=== PATIENT | male | born 1960 | race Caucasian/White ===

== ENCOUNTER 2016-08-18 13:01 | Emergency (ER) | payer MEDICAID ==
[~2016-08-18] VITALS: Ht 177.8 cm; Wt 68.1 kg
[2016-08-18] MEDS ORDERED: BISACODYL 5 MG EC TABLET PO ONE (14:15)
[2016-08-18 14:54] VITALS: BP 109/67
== END 2016-08-18 15:23 | disposition home or self-care (01) ==
LOC: EMS 13:04
DX: K59.00 Constipation, unspecified (principal)
CPT/HCPCS: 99282

== ENCOUNTER 2016-08-22 08:14 | Emergency (ER) | payer MEDICAID ==
[~2016-08-22] VITALS: Ht 177.8 cm; Wt 68.2 kg
[2016-08-22 08:34] VITALS: BP 109/67
== END 2016-08-22 08:49 | disposition home or self-care (01) ==
LOC: EMS 08:18
DX: K59.00 Constipation, unspecified (principal); Z88.0 Allergy status to penicillin
CPT/HCPCS: 99281

== ENCOUNTER 2016-11-11 16:04 | Emergency (ER) | payer MEDICAID ==
[~2016-11-11] VITALS: Ht 182.9 cm; Wt 68.2 kg
[2016-11-11 17:19] VITALS: BP 120/79
[2016-11-11] MEDS ORDERED: DIPHENOXYLATE/ATROP 2.5-0.025 MG TABLET PO ONE (17:30)
[2016-11-11] MEDS ORDERED: ONDANSETRON HCL 4 MG TABLET PO ONE (17:30)
[2016-11-11 17:35] LABS: APPEARANCE,URINE CLEAR (CLEAR); GLUCOSE, URINE (UA) NEGATIVE (NEGATIVE); KETONES,URINE 15 mg/dL (NEGATIVE); LEUKOCYTE ESTERASE ,URINE NEGATIVE (NEGATIVE); OCCULT BLOOD,URINE NEGATIVE (NEGATIVE); PH,URINE 5.5 (5.0-8.0); PROTEIN,URINE NEGATIVE (NEGATIVE)
[2016-11-11 17:39] LABS: ADD UA MICROSCOPIC NO
== END 2016-11-11 18:05 | disposition home or self-care (01) ==
LOC: EMS 16:06
DX: R19.7 Diarrhea, unspecified (principal); Z76.0 Encounter for issue of repeat prescription; Z88.0 Allergy status to penicillin
CPT/HCPCS: 81003; 99283; Q0162

== ENCOUNTER 2017-05-19 18:07 | Emergency (ER) | payer MEDICAID ==
[~2017-05-19] VITALS: Ht 182.9 cm; Wt 72.7 kg
[2017-05-19] MEDS ORDERED: DiphenhydrAMINE HCL 25 MG CAPSULE PO ONE (21:30)
[2017-05-19 21:34] VITALS: BP 132/68
[2017-05-19] MEDS ORDERED: PERMETHRIN 5% 60 GM CREAM TP ONE (22:30)
== END 2017-05-19 22:51 | disposition home or self-care (01) ==
LOC: EMS 18:11
DX: B86 Scabies (principal); Z88.0 Allergy status to penicillin
CPT/HCPCS: 99283

== ENCOUNTER 2017-05-22 16:05 | Emergency (ER) | payer MEDICAID ==
[~2017-05-22] VITALS: Ht 182.9 cm; Wt 72.7 kg
[2017-05-22 17:43] VITALS: BP 132/79
== END 2017-05-22 17:43 | disposition home or self-care (01) ==
LOC: EMS 16:07
DX: R21 Rash and other nonspecific skin eruption (principal); Z88.0 Allergy status to penicillin
CPT/HCPCS: 99281